=== PATIENT | female | born 1935 | race Caucasian/White ===

== ENCOUNTER 2018-10-25 14:55 | Emergency (ER) | payer MEDICARE ==
[2018-10-25 15:19] VITALS: BP 160/80
--- NOTE | 2018-10-25 15:42 | UC ---
Skin Complaint HPI - HPI Summary HPI Summary: 82-year-old female here with a chief complaint of a fall and cuts to the nose and the right hand. Patient tripped and fell at home striking her nose and the dorsum of the right hand today. Should bleeding on the bridge of the nose that she cleaned the wound and was able stop the bleeding. On the dorsum of the right hand is a skin tear that's 4 cm long. Hematomas formed underneath it. Patient had a cut on the inside of her mouth on the upper lip. Patient denies any other injuries. She is taking a baby aspirin but no other blood thinners. Denies any neck pain chest pain abdominal pain or any other extremity pain other than the right hand. - History of Current Complaint Chief Complaint: UCGeneralIllness Time Seen by Provider: 10/25/18 15:07 Stated Complaint: RIGHT HAND/FACIAL INJURY S/P FALL Pain Intensity: 2 - Allergy/Home Medications Allergies/Adverse Reactions: Allergies Allergy/AdvReac Type Severity Reaction Status Date / Time ibuprofen Allergy Hives Verified 10/25/18 15:08 Home Medications: Home Medications Aspirin EC TAB* [Ecotrin EC Low Dose 81 MG*] 1 tab DAILY 10/25/18 [History Confirmed 10/25/18] Hydrochlorothiazide TAB* [Hydrodiuril TAB*] 12.5 mg PO DAILY 10/25/18 [History Confirmed 10/25/18] Lisinopril TAB* [Prinivil TAB 10 MG*] 30 mg QAM 10/25/18 [History Confirmed ] Simvastatin [Zocor 5 MG-] 10 mg PO DAILY 10/25/18 [History Confirmed 10/25/18] predniSONE TAB* [Deltasone TAB*] 5 - 10 mg BID 10/25/18 [History Confirmed 10/25] PMH/Surg Hx/FS Hx/Imm Hx Previously Healthy: Yes Endocrine History: Dyslipidemia Cardiovascular History: Hypertension Other History Of: Negative For: Anticoagulant Therapy - aspirin - Surgical History Surgical History: Yes Surgery Procedure, Year, and Place: appy. t&a - Family History Known Family History: Positive: Non-Contributory - Social History Alcohol Use: None Substance Use Type: None Smoking Status (MU): Never Smoked Tobacco Review of Systems All Other Systems Reviewed And Are Negative: Yes Constitutional: Positive: Negative Skin: Positive: Other - see hpi Eyes: Positive: Negative ENT: Positive: Other - see hpi. Negative: Nasal Discharge Respiratory: Positive: Negative Cardiovascular: Positive: Negative Gastrointestinal: Positive: Negative Motor: Positive: Negative Neurovascular: Positive: Negative Musculoskeletal: Positive: Negative Neurological: Positive: Negative Psychological: Positive: Negative Is Patient Immunocompromised?: No Physical Exam Triage Information Reviewed: Yes Appearance: Well-Appearing, No Pain Distress, Well-Nourished Vital Signs: Initial Vital Signs Temp 97.8 F 10/25/18 15:11 Pulse 78 10/25/18 15:11 Resp 17 10/25/18 15:11 BP 160/80 10/25/18 15:11 Pulse Ox 98 10/25/18 15:11 Vital Signs Reviewed: Yes Eye Exam: Normal Eyes: Positive: Conjunctiva Clear ENT: Positive: Other - On examination of the patient's face there is no tenderness to palpation along the jawline on the nose or around the orbits.. Negative: Nasal drainage Neck exam: Normal Neck: Positive: Supple, Nontender Respiratory: Positive: No respiratory distress Musculoskeletal Exam: Normal Musculoskeletal: Positive: Strength Intact, ROM Intact Neurological Exam: Normal Neurological: Positive: Alert, Muscle Tone Normal Psychological Exam: Normal Skin: Positive: Other - There is a 4 mm laceration on the bridge of the nose with edges well approximated is not bleeding at this time. There is a 4 mm laceration inside the mouth on the upper lip that's also also no bleeding. The dorsum of the right hand there is a 4 cm skin tear with a hematoma underlying it. Course/Dx - Course Course Of Treatment: The bleeding at the nose laceration is stops and the wound was cleaned by nursing and antibiotic ointment applied. There is no closure here in clinic. The right hand skin tear was cleaned and the flap of skin approximated and then antibiotic on placed with Vaseline gauze and nonstick dressing over the top by nursing. We discussed x-rays or CT at this time it does not appear that is any fractures and the patient declined any x-rays. Patient is not on a blood thinner. Overall plan is daily dressing changes and follow-up with her primary care doctor reevaluation sooner if worse or any questions or concerns. - Diagnoses Provider Diagnosis: Skin tear of right hand without complication, Facial contusion, Laceration of face, Lip laceration Discharge - Sign-Out/Discharge Documenting (check all that apply): Patient Departure All imaging exams completed and their final reports reviewed: No Studies - Discharge Plan Condition: Stable Disposition: HOME Patient Education Materials: Skin Tear (ED), Laceration Without Closure (ED), Facial Laceration (ED), Facial Contusion (ED) Referrals: [facility] [Outside] Additional Instructions: FOLLOW UP WITH YOUR DOCTOR. DO DAILY DRESSING CHANGES. WASH THE SKIN TEAR WITH SOAP AND WATER, APPLY ANTIBIOTIC OINTMENT AND A NON STICK DRESSING. GET RECHECKED SOONER WITH ANY WORSENING OF YOUR CONDITION; ANY SIGNS OF INFECTION, PAIN, YOU FEEL ILL OR QUESTIONS OR CONCERNS. - Billing Disposition and Condition Condition: STABLE Disposition: Home
== END 2018-10-25 16:10 | disposition home or self-care (01) ==
LOC: UCCORT 14:55
DX: S61.411A Laceration without foreign body of right hand, initial encounter (principal); S01.21XA Laceration without foreign body of nose, initial encounter; S01.511A Laceration without foreign body of lip, initial encounter; W01.0XXA Fall on same level from slipping, tripping and stumbling without subsequent striking against object, initial encounter; Y92.009 Unspecified place in unspecified non-institutional (private) residence as the place of occurrence of the external cause; E78.5 Hyperlipidemia, unspecified; I10 Essential (primary) hypertension; Z79.82 Long term (current) use of aspirin; Z88.6 Allergy status to analgesic agent
CPT/HCPCS: 99202; G0463

== ENCOUNTER 2020-06-12 12:56 | Inpatient (IN) ==
[~2020-06-12 12:56] MED LIST: Buffered Lidocaine 1% SYRIN 1 ml INTRADERM ONE; Dexamethasone IV 4 MG/ML VIAL 1 ml VIAL IV SLOW PU ONE; Lactated Ringers 1000 ml BAG 1,000 ML IV SCH; Midazolam 2 mg/2 ml VIAL 1 mg/ml 2 ml VIAL (2 mg) ONE; Morphine PF AMP (0.5MG/ML) 5 MG/10 ML AMP ONE; Rocuronium 50 mg VIAL 10 mg/ml 5 ml VIAL (50 mg) ONE; fentaNYL 100 mcg/2 ml 50 MCG/ML VIAL ONE
[2020-06-12] MEDS ORDERED: ceFAZolin 2 GM PREMIX 2 GM/50 ML BAG ONE (13:27)
[2020-06-12] MEDS ORDERED: Dexamethasone IV 4 MG/ML VIAL 1 ml VIAL ONE (13:27)
[2020-06-12] MEDS ORDERED: fentaNYL 100 mcg/2 ml 50 MCG/ML VIAL ONE (14:54)
[2020-06-12] MEDS ORDERED: HYDROmorphone 1 MG/1 ML SYRINGE IV PRN (16:24)
[2020-06-12] MEDS ORDERED: Ondansetron 4 mg VIAL 2 MG/ML 2 ml VIAL IV PRN ×2 (16:24→18:29)
[2020-06-12] MEDS ORDERED: fentaNYL 100 mcg/2 ml 50 MCG/ML VIAL IV PRN (16:24)
[2020-06-12] MEDS ORDERED: Naloxone 0.4 mg VIAL 0.4 mg/ml 1 ml VIAL IV PRN (16:24)
[2020-06-12] MEDS ORDERED: Bupivacaine 0.5% SDV PF 30ML VIAL ONE (17:03)
[2020-06-12] MEDS ORDERED: oxyCODONE/Acetamin 5/325 mg TAB PO PRN (18:29)
[2020-06-12] MEDS ORDERED: Lactulose 30 ml UDC PO PRN (18:29)
[2020-06-12] MEDS ORDERED: Ondansetron ODT 4 mg TAB 4 MG TAB PO PRN (18:29)
[2020-06-12] MEDS ORDERED: Morphine 2 MG/ML SYRINGE IV PRN (18:29)
[2020-06-12] MEDS ORDERED: diPHENhydraMINE 25 mg TAB PO PRN (18:29)
[2020-06-12] MEDS ORDERED: diPHENhydraMINE IV 50 MG/ML 1 ml VIAL (BENADRYL) IV PRN (18:29)
[2020-06-12] MEDS ORDERED: Magnesium Hydroxide LIQ 30 ML UDC PO PRN (18:29)
[2020-06-12] MEDS ORDERED: Lactated Ringers 1000 ml BAG 1,000 ML IV SCH (19:00)
[2020-06-12] MEDS: Magnesium Hydroxide LIQ 30 ML UDC PO SCH (20:48)
[2020-06-12] MEDS: CMC:Simvastatin 10 mg TAB (NF) PO SCH (21:47)
[2020-06-13] MEDS: ceFAZolin 1 GM ADVAN 1 GM in NS 0.9% 50 ML 50 ML IVPB SCH ×3 (01:09→16:41)
[2020-06-13 05:50] LABS: ABS Lymphocytes 0.6 10^3/ul (1.0-4.8); ABS Neutrophils 10.2 10^3/ul (1.5-7.7); Hematocrit 33 % (35-47); Hemoglobin 11.3 g/dL (12.0-16.0); Lymphocyte % 4.7 %; Mean Corpuscular HGB Conc 35 g/dL (31-36); Mean Corpuscular Hemoglobin 33 pg (27-31); Mean Corpuscular Volume 94 fL (80-97); Mean Platelet Volume 8.5 fL (7.4-10.4); Platelet Count 203 10^3/uL (150-450); Red Blood Count 3.47 10^6 /uL (3.70-4.87); Red Cell Distribution Width 13 % (10-15); White Blood Count 11.8 10^3/uL (3.5-10.8)
[2020-06-13 06:07] LABS: BUN/Creatinine Ratio 24.6 (8-20); Calcium 8.9 mg/dL (8.6-10.3); EGFR African American 97.6 (>60); EGFR Non-African American 80.7 (>60); Potassium 4.5 mmol/L (3.5-5.0)
[2020-06-13] MEDS: Vitamin THERAPEUTIC TAB PO SCH (09:10)
[2020-06-13] MEDS: Magnesium Hydroxide LIQ 30 ML UDC PO SCH ×2 (10:25→20:45)
[2020-06-13] MEDS: CMC:Simvastatin 10 mg TAB (NF) PO SCH (20:43)
[2020-06-14 05:29] LABS: Hematocrit 31 % (35-47); Hemoglobin 10.3 g/dL (12.0-16.0); Mean Platelet Volume 8.2 fL (7.4-10.4); Platelet Count 181 10^3/uL (150-450)
[2020-06-14] MEDS: Vitamin THERAPEUTIC TAB PO SCH (10:25)
[2020-06-14] MEDS: Magnesium Hydroxide LIQ 30 ML UDC PO SCH ×2 (10:32→22:13)
[2020-06-14] MEDS: CMC:Simvastatin 10 mg TAB (NF) PO SCH (21:41)
[2020-06-15 06:12] LABS: Hematocrit 32 % (35-47); Hemoglobin 10.4 g/dL (12.0-16.0); Mean Corpuscular HGB Conc 33 g/dL (31-36); Mean Corpuscular Hemoglobin 31 pg (27-31); Mean Corpuscular Volume 95 fL (80-97); Mean Platelet Volume 8.6 fL (7.4-10.4); Platelet Count 173 10^3/uL (150-450); Red Blood Count 3.35 10^6 /uL (3.70-4.87); Red Cell Distribution Width 14 % (10-15); White Blood Count 12.7 10^3/uL (3.5-10.8)
[2020-06-15 06:27] LABS: ABS Eosinophils 0.1 10^3/ul (0-0.6); ABS Lymphocytes 1.6 10^3/ul (1.0-4.8); ABS Monocytes 1.6 10^3/ul (0-0.8); ABS Neutrophils 9.4 10^3/ul (1.5-7.7); Eosinophil % 0.7 %; Lymphocyte % 12.4 %
[2020-06-15 06:29] LABS: BUN/Creatinine Ratio 20.3 (8-20); Calcium 8.6 mg/dL (8.6-10.3); EGFR Non-African American 74.4 (>60); Magnesium 2.2 mg/dL (1.9-2.7); Potassium 4.1 mmol/L (3.5-5.0)
[2020-06-15] MEDS: Vitamin THERAPEUTIC TAB PO SCH (09:03)
[2020-06-15] MEDS: Magnesium Hydroxide LIQ 30 ML UDC PO SCH ×2 (09:04→20:01)
[2020-06-15] MEDS: CMC:Simvastatin 10 mg TAB (NF) PO SCH (20:01)
[2020-06-16 05:55] LABS: Hematocrit 29 % (35-47); Hemoglobin 10.1 g/dL (12.0-16.0); Mean Platelet Volume 8.6 fL (7.4-10.4); Platelet Count 172 10^3/uL (150-450)
[2020-06-16] MEDS: Vitamin THERAPEUTIC TAB PO SCH (09:22)
[2020-06-16] MEDS: Magnesium Hydroxide LIQ 30 ML UDC PO SCH ×2 (09:25→19:59)
[2020-06-16] MEDS: CMC:Simvastatin 10 mg TAB (NF) PO SCH (19:59)
[2020-06-17 06:45] LABS: Hematocrit 28 % (35-47); Hemoglobin 9.8 g/dL (12.0-16.0); Platelet Count 185 10^3/uL (150-450)
[2020-06-17] MEDS: Vitamin THERAPEUTIC TAB PO SCH (09:56)
[2020-06-17] MEDS: Magnesium Hydroxide LIQ 30 ML UDC PO SCH (10:03)
[2020-06-17 11:45] VITALS: BP 163/46
== END 2020-06-17 14:08 | DRG 470 ==
LOC: AA 12:56 → SSU 18:29
PROVIDERS: ADMIT Orthopaedic Surgery Adult Reconstructive Orthopaedic Surgery; ATTEND Orthopaedic Surgery Adult Reconstructive Orthopaedic Surgery